=== PATIENT | female | born 2000 | race Caucasian/White ===

== ENCOUNTER 2022-01-07 16:21 | Emergency (ER) | payer BC ==
[2022-01-07] MEDS ORDERED: TYLENOL 325 MG PO ONE (17:13)
--- NOTE | 2022-01-07 17:15 | ERPHSYRPT ---
- History of Present Illness Time Seen by Provider: 01/07/22 16:40 Source: patient Exam Limitations: no limitations Patient Subjective Stated Complaint: HTN- Triage Nursing Assessment: Patient ambulated back to ED and transferred self to bed. Patient A+O X3. Patient's skin pink ,warm and dry. Patient complains of HTN for a week and a half. Patient states she is , but unknown how many months. Patient states during her last she had htn. Patient complains of headache 5/10. Physician History: Patient is a 21-year-old female presents to our ED with concerns for hypertension. She says her blood pressure has been running between 140s to 170s. Patient followed up with her primary care doctor who started her on a low-sodium diet. Patient had been on her diet for approximately 2 to 3 days. P atient concerned that her blood pressure has not come down yet. Patient has a slight headache. Patient believes her headache is due to her blood pressure which is currently 137/91. Patient advised that she is . Patient called her OB doctor's office to advise them of the blood pressure issue. Her OB doctor told her that the blood pressure is not related because she is too early in her . Patient has no chest pain or shortness of breath. No nausea vomiting or diaphoresis. No vaginal discharge. No pelvic pain. No abdominal pain. Patient has no complaints related to her . Patient voices no other complaints or concerns at this time. Timing/Duration: week(s) (Patient observed her blood pressure to be elevated approximately 1.5 weeks ago.) Severity: mild Modifying Factors: Improves With: nothing Associated Symptoms: headaches Allergies/Adverse Reactions: escitalopram [From Lexapro] Allergy (Verified 01/07/22 16:28) Home Medications: Aripiprazole [Abilify] 1 tab PO HS 01/07/22 [History] Buspirone HCl 5 mg [Buspar 5 mg] 150 mg PO DAILY 01/07/22 [History] Hx Influenza Vaccination/Date Given: No Hx Pneumococcal Vaccination/Date Given: No Immunizations Up to Date: Yes Travel Risk - International Travel Have you traveled outside of the country in past 3 weeks: No - Coronavirus Screening Are you exhibiting any of the following symptoms?: No Close contact with a COVID-19 positive Pt in past 14-21 Days: No - Vaccine Status Have you recieved a Covid-19 vaccination: Yes [employer]: Pfizer - Vaccination Dates Date of 2cond Vaccination (if applicable): na - Review of Systems Constitutional: No Symptoms, No Fever, No Chills Eyes: No Symptoms Ears, Nose, & Throat: No Symptoms Respiratory: No Symptoms, No Cough, No Dyspnea Cardiac: No Symptoms, No Chest Pain, No Edema, No Syncope Abdominal/Gastrointestinal: No Symptoms, No Abdominal Pain, No Nausea, No Vomiting, No Diarrhea Genitourinary Symptoms: No Symptoms, No Dysuria Musculoskeletal: No Symptoms, No Back Pain, No Neck Pain Skin: No Symptoms, No Rash Neurological: No Symptoms, No Dizziness, No Focal Weakness, No Sensory Changes Psychological: No Symptoms Endocrine: No Symptoms Hematologic/Lymphatic: No Symptoms Immunological/Allergic: No Symptoms All Other Systems: Reviewed and Negative - Past Medical History Pertinent Past Medical History: Yes Neurological History: No Pertinent History ENT History: No Pertinent History Cardiac History: No Pertinent History Respiratory History: No Pertinent History Endocrine Medical History: No Pertinent History Musculoskeletal History: No Pertinent History GI Medical History: No Pertinent History History: No Pertinent History Psycho-Social History: Depression Female Reproductive Disorders: No Pertinent History Other Medical History: HTN when - Past Surgical History Past Surgical History: Yes Neuro Surgical History: No Pertinent History Cardiac: No Pertinent History Respiratory: No Pertinent History Gastrointestinal: No Pertinent History Genitourinary: No Pertinent History Musculoskeletal: Orthopedic Surgery Female Surgical History: No Pertinent History Other Surgical History: Right knee scope - Social History Smoking Status: Never smoker Exposure to second hand smoke: No Drug Use: none Patient Lives Alone: No - Female History Hx Last Menstrual Period: November 18, 2021 Hx Now: Yes - Nursing Vital Signs Nursing Vital Signs: Initial Vital Signs Temperature 98.0 F 01/07/22 16:33 Pulse Rate 94 H 01/07/22 16:33 Respiratory Rate 19 01/07/22 16:33 Blood Pressure 147/103 01/07/22 16:33 O2 Sat by Pulse Oximetry 100 01/07/22 16:33 Pain Scale Pain Intensity 5 - Physical Exam General Appearance: no apparent distress, alert Eye Exam: PERRL/EOMI, eyes nml inspection Ears, Nose, Throat Exam: normal ENT inspection, TMs normal, pharynx normal, moist mucous membranes Neck Exam: normal inspection, non-tender, supple, full range of motion Respiratory Exam: normal breath sounds, lungs clear, No respiratory distress Cardiovascular Exam: regular rate/rhythm, normal heart sounds, normal peripheral pulses Gastrointestinal/Abdomen Exam: soft, normal bowel sounds, No tenderness, No mass Back Exam: normal inspection, normal range of motion, No CVA tenderness, No vertebral tenderness Extremity Exam: normal inspection, normal range of motion, pelvis stable Neurologic Exam: alert, oriented x 3, cooperative, normal mood/affect, nml cerebellar function, nml station & gait, sensation nml, No motor deficits Skin Exam: normal color, warm, dry, No rash Lymphatic Exam: No adenopathy SpO2 Interpretation: normal SpO2: 100 O2 Delivery: Room Air - Course Nursing assessment & vital signs reviewed: Yes EKG Interpreted by Me: RATE ([id number]), Sinus Rhythm, NORMAL AXIS, NORMAL INTERVALS Ordered Tests: Active Orders 24 hr Category Date Time Status EKG-ER Only STAT Care 01/07/22 17:15 Active IV Insertion STAT Care 01/07/22 17:15 Active CBC W DIFF Stat Lab 01/07/22 16:50 Completed CMP Stat Lab 01/07/22 16:50 Completed TROPONIN Q4H Lab 01/07/22 16:50 Completed TROPONIN Q4H Lab 01/07/22 21:15 Ordered TROPONIN Q4H Lab 01/08/22 01:15 Ordered Medication Summary Discontinued Medications Generic Name Dose Route Start Last Admin Trade Name Leidy PRN Reason Stop Dose Admin Acetaminophen 975 mg 01/07/22 17:13 01/07/22 17:21 Acetaminophen 325 Mg Tablet PO 01/07/22 17:14 975 mg STAT ONE Administration Acetaminophen Confirm 01/07/22 17:21 Acetaminophen 325 Mg Tablet Administered 01/07/22 17:22 Dose 975 mg .ROUTE .[facility] ONE Lab/Rad Data: Laboratory Result Diagrams 01/07/22 16:50 01/07/22 16:50 Laboratory Results 01/07/22 01/07/22 01/07/22 Range/Units 16:50 16:50 16:50 WBC 8.9 (4.0-10.5) x10^3/uL RBC 4.17 (4.1-5.4) x10^6/uL Hgb 11.2 L (12.0-16.0) g/dL Hct 34.6 L (35-47) % MCV 83.0 (78-100) fL MCH 26.9 (26-32) pg MCHC 32.4 (32-36) g/dL RDW 14.4 H (11.5-14.0) % Plt Count 349 (150-450) x10^3/uL MPV 9.5 (7.5-11.0) fL Gran % 65.5 (36.0-66.0) % Immature Gran % (Auto) 0.2 (0.00-0.4) % Nucleat RBC Rel Count 0.0 (0.00-0.1) % Eos # (Auto) 0.15 (0-0.5) x10^3/uL Immature Gran # (Auto) 0.02 (0.00-0.03) x10^3u/L Absolute Lymphs (auto) 2.20 (1.0-4.6) x10^3/uL Absolute Monos (auto) 0.69 (0.0-1.3) x10^3/uL Absolute Nucleated RBC 0.00 (0.00-0.01) x10^3u/L Lymphocytes % 24.7 (24.0-44.0) % Monocytes % 7.7 (0.0-12.0) % Eosinophils % 1.7 (0.00-5.0) % Basophils % 0.2 (0.0-0.4) % Absolute Granulocytes 5.84 (1.4-6.9) x10^3/uL Basophils # 0.02 (0-0.4) x10^3/uL Sodium 136 L (137-145) mmol/L Potassium 4.1 (3.5-5.1) mmol/L Chloride 102 (98-107) mmol/L Carbon Dioxide 25 (22-30) mmol/L Anion Gap 13.5 (5-15) MEQ/L BUN 11 (7-17) mg/dL Creatinine 0.69 (0.52-1.04) mg/dL Estimated GFR > 60.0 ML/MIN Glucose 90 (74-106) mg/dL Calcium 9.2 (8.4-10.2) mg/dL Total Bilirubin 0.30 (0.2-1.3) mg/dL AST 19 (14-36) U/L ALT 12 (0-35) U/L Alkaline Phosphatase 75 (38-126) U/L Troponin I < 0.012 (0.000-0.034) ng/mL Serum Total Protein 7.7 (6.3-8.2) g/dL Albumin 4.5 (3.5-5.0) g/dL - Progress Progress: improved Progress Note: Patient reassessed. She feels well. Blood pressure down to 122/74 without intervention. Laboratory work-up negative. No indication for antihypertensive medication at this time. Will discharge home. Patient states she is . She has no complaints regarding her . Patient agrees to follow-up with primary care doctor within 48 hours for evaluation. Portions of this note were created with voice recognition technology. There may be grammatical, spelling, punctuation or sound alike errors 01/07/22 18:40 Counseled pt/family regarding: lab results, diagnosis, need for follow-up - Departure Departure Disposition: Home Clinical Impression: Encounter for medical screening examination, Headache Condition: Stable Critical Care Time: No Referrals: LUANN ESPINO MD [Primary Care Provider] - Follow up/PCP as directed Additional Instructions: Discharge/Care Plan RADHA MCCLAIN was seen on 01/07/22 in the Emergency Room. The patient was counseled regarding Diagnosis,Lab results, Imaging studies, need for follow up and when to return to the Emergency Room. Prescriptions given: Discharge Note I have spoken with the patient and/or caregivers. I have explained the patient's condition, diagnosis and treatment plan based on the information available to me at this time. I have answered the patient's and/or caregiver's questions and addressed any concerns. The patient and/or caregivers have as good understanding of the patient's diagnosis, condition and treatment plan as can be expected at this point. The vital signs have been stable. The patient's condition is stable and appropriate for discharge from the emergency department. The patient will pursue further outpatient evaluation with the primary care physician or other designated or consulting physician as outlined in the discharge instructions. The patient and/or caregivers are agreeable to this plan of care and follow-up instructions have been explained in detail. The patient and/or caregivers have received these instruction. The patient/and or caregivers are aware that any significant change in condition or worsening of symptoms should prompt an immediate return to this or the closest emergency department or call 911.
[2022-01-07] MEDS ORDERED: TYLENOL 325 MG ONE (17:21)
[2022-01-07 17:22] LABS: Absolute Neutrophil Ct (ANC) 5.84 x10^3/uL (1.4-6.9); Basophil (Absolute #) 0.02 x10^3/uL (0-0.4); Eosinophil % 1.7 % (0.00-5.0); Eosinophil (Absolute #) 0.15 x10^3/uL (0-0.5); Hematocrit 34.6 % (35-47); Hemoglobin 11.2 g/dL (12.0-16.0); Lymphocytes % 24.7 % (24.0-44.0); Mean Corpuscular Hemoglobin 26.9 pg (26-32); Mean Corpuscular Hgb Concent. 32.4 g/dL (32-36); Mean Platelet Volume 9.5 fL (7.5-11.0); Monocyte (Absolute #) 0.69 x10^3/uL (0.0-1.3); Monocytes % 7.7 % (0.0-12.0); Neutrophil % 65.5 % (36.0-66.0); Platelet Count 349 x10^3/uL (150-450); Red Blood Count 4.17 x10^6/uL (4.1-5.4); Red Cell Distribution Width 14.4 % (11.5-14.0); White Blood Count 8.9 x10^3/uL (4.0-10.5)
[2022-01-07 17:28] LABS: ALBUMIN 4.5 g/dL (3.5-5.0); ALKALINE PHOSPHATASE 75 U/L (38-126); ANION GAP 13.5 MEQ/L (5-15); BLOOD UREA NITROGEN 11 mg/dL (7-17); CHLORIDE 102 mmol/L (98-107); Calcium 9.2 mg/dL (8.4-10.2); Carbon Dioxide 25 mmol/L (22-30); Creatinine 1 0.69 mg/dL (0.52-1.04); EST GLOMERULAR FILTRATION RATE > 60.0 ML/MIN; Glucose 90 mg/dL (74-106); Potassium 4.1 mmol/L (3.5-5.1); SGOT/AST 19 U/L (14-36); SGPT/ALT 12 U/L (0-35); SODIUM 136 mmol/L (137-145); Total Protein 7.7 g/dL (6.3-8.2)
[2022-01-07 18:53] VITALS: BP 130/92; PULSE 84; O2SAT 98
== END 2022-01-07 18:55 | disposition home or self-care (01) ==
LOC: ED 16:21
DX: Z71.1 Person with feared health complaint in whom no diagnosis is made (principal); R51.9 Headache, unspecified; Z33.1 Pregnant state, incidental
CPT/HCPCS: 36000; 36415; 80053; 84484; 85025; 93005; 99283; A9270-GY